=== PATIENT | female | born 1960 | race Hispanic/Latino ===

== ENCOUNTER → 2018-09-09 | Day surgery (SDC) | payer BC ==
--- NOTE | 2018-09-05 15:55 | Diagnostic Imaging Report ---
EXAMINATION: PA and lateral views of the chest. COMPARISON: None CLINICAL HISTORY: Preoperative evaluation, foot surgery DISCUSSION: Lines/tubes: None. Lungs: Lingular atelectasis. Otherwise lungs are clear. Pleura: No pleural effusion or pneumothorax. Heart and mediastinum: The cardiomediastinal silhouette is normal. Bones and soft tissues: No acute bony abnormalities. IMPRESSION: No acute cardiopulmonary abnormalities. Signed by: Dr. Tommy Ayala M.D. on 09/05/2018 3:51 PM
[~2018-09-09] MED LIST: ACETAMINOPHEN 1000 MG/100 ML 100 ML IV ONE; ALPRAZOLAM0.25 MG PO; ATENOLOL100 MG PO; BUPIVACAINE HCL 0.5% INJ 30 ML VIAL INJ ONE; CEFAZOLIN SOD 1 GM/NS 50ML 50 ML IV ONE; DEXAMETHASONE SOD PHOS INJ 4 MG/ML VIAL ONE; FENTANYL CITRATE/PF 100MCG/2 ML INJ ONE; HYDROMORPHONE 2MG/ML 2 MG/ML ML ONE; KETOROLAC TROMETHAMINE 30 MG/ML VIAL ONE; LIDOCAINE HCL 2% LOCAL INJ 5 ML SDV VIAL INJ ONE; LISINOPRIL-HCT1 EACH PO; MIDAZOLAM HCL 2 MG/2 ML VIAL ONE; ONDANSETRON HCL INJ 2MG/ML 2ML 2 MG/ML VIAL ONE; PROPOFOL IV EMULSION 10 MG/ML 20 ML VIAL ONE; SEVOFLURANE INHAL SOLN 250 ML PEN BTL ONE
--- OUTSIDE RECORDS SUMMARY | 2018-09-09 05:04 | XMS REPORT | Clinical Summary ---
Author Author [facility] Organization [facility] Address Unknown Phone Unavailable Care Team Providers Care Security Assurance Analyst Name Role Phone Ian Dahl DO PCP Allergies No Known Allergies Medications End Date Status Medication Sig Dispensed Refills Start Date Active atenolol (TENORMIN) 100 Take 100 mg 0 MG tablet by mouth daily. Active lisinopril-hydrochlorothi Take 1 tablet 0 azide by mouth (PRINZIDE,ZESTORETIC) daily. 20-12.5 mg per tablet Active multivitamin with Take 1 tablet 0 minerals tablet by mouth daily. Active Problems Not on file Social History Date Tobacco Use Types Packs/Day Years Used Quit: 11/23/1996 Former Smoker Cigarettes Smokeless Tobacco: Never Used Alcohol Use Drinks/Week oz/Week Comments Yes Social Sex Assigned at Date Recorded Not on file Industry Job Start Date Occupation Not on file Not on file Not on file Travel End Travel History Travel Start No recent travel history available. Last Filed Vital Signs Not on file Plan of Treatment Health Maintenance Due Date Last Done Comments CERVICAL CANCER SCREENING 1982 BREAST CANCER SCREENING 2011 COLON CANCER SCREENING 2011 SHINGLES VACCINES (#1) 2011 INFLUENZA VACCINE 12/11/2018 Results Not on fileafter 09/08/2017 Insurance Payer Benefit Subscriber ID Type Phone Address Plan / Group BCBS BCBS xxxxxxxxxxxx PPO CHOICE PPO/[employer] PPO (Home) [place] [address] Advance Directives Patient has advance care planning documents on file. For more information, omega sheridan contact: [facility] [address] [place] [address]
--- OUTSIDE RECORDS SUMMARY | 2018-09-09 05:04 | XMS REPORT ---
[facility] Address Unknown Phone Unavailable Care Team Providers Care Skein Yarn Dyer Name Role Phone Elia DEJESUS Unavailable Unavailable Problems This patient has no known problems. Allergies, Adverse Reactions, Alerts This patient has no known allergies or adverse reactions. Medications This patient has no known medications. Results Test Description Test Time Test Comments Text Results Atomic Results Result Comments CHEST 2 VIEWS 2018-09-05 15:50:00 [place] [address] Patient Name: AYAKA MEYERS MR #: [id number] : 1960 Age/Sex: 58/F Req #: [id number] [facility] Physician: Ordered by: TATYANA DEJESUS DPM Report #: [id number] Location: OR Room/Bed: Procedure: [id number] DX/CHEST 2 VIEWS Exam Date: 09/05/18 Exam Time: 1524 REPORT STATUS: Signed EXAMINATION: PA and lateral views of the chest. COM PARISON: None CLINICAL HISTORY: Preoperative evaluation, foot surgery DISCUSSION: Lines/tubes: None. Lungs: Lingular atelectasis. Otherwise lungs are clear. Pleura: No pleural effusion or pneumothorax. Heart and mediastinum: The cardiomediastinal silhouette is normal. Bones and soft tissues: No acute bony abnormalities. IMPRESSION: No acute cardiopulmonary abnormalities. Signed by: Dr. Eva Garnica M.D. on 09/05/2018 3:51 PM Dictated By: EVA GARNICA MD 50 Transcribed By: MITCH on 09/05/181550 COPY TO: TATYANA DEJESUS DPM
[2018-09-09 09:30] VITALS: BP 118/53
--- NOTE | 2018-09-09 14:50 | Operative Report ---
DATE OF PROCEDURE: 09/09/2018 SURGEON: Ron Jama DPM PREOPERATIVE DIAGNOSES: 1. Right heel spur with plantar fasciitis. 2. Right 2nd metatarsal cuneiform exostosis. ANESTHESIA: General with a postoperative block consisting of 10 mL of 0.5% Marcaine plain mixed with 1 mL of dexamethasone. HEMOSTASIS: Pneumatic thigh tourniquet set at 350 mmHg for a total time of approximately 30 minutes. MATERIALS: One TLS drain, 2-0 Vicryl, 3-0 Vicryl, and 4-0 Prolene. ESTIMATED BLOOD LOSS: Less than 10 mL. PATHOLOGY: None. PROCEDURE NOTE: The patient was seen in the preop waiting room. The correct procedure and site were identified. The patient was brought to the operating room and placed on the operating table in the supine position. General anesthesia was initiated. At this time, a well-padded pneumatic tourniquet was placed about the patient's right thigh. The right foot, ankle, and leg was then scrubbed, prepped, and draped in the usual aseptic manner. The right foot, ankle, leg was exsanguinated with an Esmarch bandage and the pneumatic thigh tourniquet was inflated to 350 mmHg for a total time approximately 30 minutes. Attention was directed to the medial aspect of the patient's right heel, where a 4 cm linear incision was made directly over the area. Incision was carried through subcutaneous tissues it from deeper underling structures. All vital neurovascular structures were identified, retracted medially and laterally. All bleeders were cauterized or ligated as deemed necessary. Next, utilizing a Metzenbaum scissor, the dorsal and plantar aspect of the plantar fascia was identified and the plantar fascia was cut approximately one-third to one-half the way across to the lateral side. At this point, the bone spur was easily identified utilizing osteotome and pedro luis goldsmith and a rasp was smoothed to anatomic alignment and confirmed via intraoperative fluoroscopy. The wound was then flushed with copious amounts of sterile saline. A TLS drain was placed per manufacture protocol. Deep tissues were reapproximated with 3-0 Vicryl and the skin was closed using a running interlocking stitch of 4-0 Prolene. Attention was directed to the dorsal aspect of the 2nd metatarsal cuneiform joint, where a large exostosis was noted. The incision was made directly over the exostosis and there was noted to be inflamed medial dorsal cutaneous nerves superficially directly through the incision. The medial dorsal cutaneous nerve was retracted medially and the extensor digitorum longus tendon was retracted laterally to allow for good visualization of the exostosis. Utilizing osteotome and mallet and a rotary bur, this was smoothed in anatomical alignment. Flushed with copious amounts of sterile saline, injected with Decadron right along the medial dorsal cutaneous nerve. The incision site was then reapproximated utilizing simple interlocking suture with 4-0 Prolene. Both incision sites were dressed with Betadine-soaked Adaptic, 4x4s, Kerlix, John wrap, and a postop shoe. The patient tolerated the procedure and anesthesia well. The patient was transferred to postop recovery with vital signs stable and vascular status intact. The patient was monitored there for a short period time before being sent home with the following written and oral instructions. 1. Keep the dressing clean, dry, and intact. 2. The patient is to remain nonweightbearing in a postop shoe to avoid any ambulation until being seen in the office. 3. The patient is given the office number to try to contact us if any problems arise. JEFE Nelson/MIHIR /[id number]
== END | disposition home or self-care (01) ==
LOC: OR 05:01
PROVIDERS: ATTEND Podiatrist Foot & Ankle Surgery
DX: M77.31 Calcaneal spur, right foot (principal); M77.51 Other enthesopathy of right foot and ankle; M72.2 Plantar fascial fibromatosis; I10 Essential (primary) hypertension; F41.9 Anxiety disorder, unspecified; Z01.810 Encounter for preprocedural cardiovascular examination; Z01.818 Encounter for other preprocedural examination
CPT/HCPCS: 28104; 28119; 71046; 93005; J0131; J0690; J1100; J1170; J1885; J2001; J2250; J2405; J2704